=== PATIENT | female | born 1975 | race Caucasian/White ===

== ENCOUNTER 2023-11-16 07:30 | Outpatient (RCR) | payer BC, SELFPAY | END 2024-03-15 23:59 | disposition home or self-care (01) | PROVIDERS: PCP Physical Medicine & Rehabilitation; Visit Provider Physical Medicine & Rehabilitation | DX: M54.2 Cervicalgia (principal); Z51.89 Encounter for other specified aftercare | CPT/HCPCS: 97012; 97110; 97140; 97162 ==

== ENCOUNTER 2024-02-19 12:45 | Outpatient (CLI) | payer BC, SELFPAY ==
--- NOTE | 2024-02-19 13:00 | CRLHL7_ITS ---
For Patients: As a result of the Century Cures Act, medical imaging exams and procedure reports are released immediately into your electronic medical record. You may view this report before your referring provider. If you have questions, please contact your health care provider. INDICATION: Low back pain. TECHNIQUE : Lumbar spine MRI without contrast. COMPARISON: None. FINDINGS : Five lumbar type vertebral bodies, with the last fully formed disc space designated as L5-S1. Normal lumbar lordotic curve. No recent compression fracture or marrow replacing process. Lower cord/conus signal is normal. The conus terminates at a normal location. No intradural lesion. No extraspinal soft tissue abnormalities. Discs/Endplates: Moderate disc height loss and disc desiccation at T11-12. Mild disc height loss disc desiccation at L3-4 and L5-S1. The remaining discs are within normal limits. Findings at individual levels as follows: T11-12: A shallow central protrusion flattens the thecal sac. No spinal canal or neural foraminal stenosis. T12-L1: No spinal canal or neural foraminal stenosis. L1-2: No spinal canal or neural foraminal stenosis. L2-3: No spinal canal or neural foraminal stenosis. L3-4: Moderate disc bulge. Bilateral facet arthrosis. Moderate spinal canal stenosis. No neural foraminal stenosis. L4-5: Mild disc bulge. No spinal canal or neural foraminal stenosis. L5-S1: A shallow central protrusion with annular fissure which contacts the traversing S1 nerve roots. No spinal canal or neural foraminal stenosis. Imaged SI joints: Within normal limits. Imaged sacrum: Within normal limits. IMPRESSION: 1. At L3-4, moderate spinal canal stenosis from disc bulging and facet arthrosis. 2. At L5-S1, a shallow central protrusion contacts the traversing S1 nerve roots. 3. No spinal canal/neural foraminal stenosis or impingement of neural structures elsewhere. Dictated by Saud Dawkins MD @ 02/19/2024 2:09:10 PM (Electronically Signed)
== END 2024-02-19 12:46 | disposition home or self-care (01) ==
LOC: MRI 12:48
PROVIDERS: PCP Physical Medicine & Rehabilitation; Visit Provider Physical Medicine & Rehabilitation
DX: M54.50 Low back pain, unspecified (principal); M51.26 Other intervertebral disc displacement, lumbar region; M51.27 Other intervertebral disc displacement, lumbosacral region
CPT/HCPCS: 72148

== ENCOUNTER 2024-06-14 12:54 | Outpatient (CLI) | payer BC, SELFPAY ==
--- NOTE | 2024-06-14 13:00 | MR_ITS ---
[address] [address] Phone:?[phone] Fax:?[phone] Referring Physician Information: Jefry Vazquez M.D. [address] [facility] [address] Phone:?[phone] Fax:?[phone] Patient:Kayleen Early D.O.B:?1975 Sex:?Female Phone:?[phone] [facility] MRN:?[id number] Exam Date:?06/14/2024 EXAM: MRI of the RIGHT ANKLE CLINICAL HISTORY: Ongoing right ankle pain. Evaluate for ligamentous injury. COMPARISONS: Plain radiographs 03/21/2024. TECHNICAL: MRI sequences of the right ankle: Axials: PD, T2FS Coronals: PD, T2FS Sagittals: PD, T2, STIR Sedation: None Contrast: None FINDINGS: Joints and osseous structures: No fracture, destructive osseous lesion, subluxation, dislocation, tarsal coalition, or talar dome osteochondral lesion is seen. There are mild fourth and fifth TMT joint degenerative changes. Ligaments: Syndesmotic: The anterior inferior tibiofibular, posterior inferior tibiofibular, and inferior transverse ligaments are intact. Anterior talofibular: Intact. Calcaneofibular: Intact. Posterior talofibular: Intact. Deltoid: Unremarkable. Spring: Unremarkable. Sinus tarsi: Intact lateral cervical and medial interosseous ligaments. Bifurcate: Unremarkable lateral calcaneonavicular and medial calcaneocuboid ligaments. Calcaneocuboid: Unremarkable medial, dorsolateral and plantar ligaments. Lisfranc ligament complex: Intact. Flexor tendons: Posterior tibial: Slight tenosynovitis. Flexor digitorum longus: Intact. Flexor hallucis longus: Intact. Peroneal tendons: There is split longitudinal tear of the peroneus brevis tendon from just above the level of the distal fibular tip extending distally just proximal to the level of the calcaneocuboid joint. No lateral subluxation. Extensor tendons: Tibialis anterior: Intact. Extensor hallucis longus: Intact. Extensor digitorum longus: Intact. Achilles tendon: Intact. Plantar aponeurosis: Unremarkable. Sinus Tarsi:?The sinus tarsi fat is intact. Tarsal tunnel: Unremarkable. IMPRESSION: 1. Split longitudinal tear of the peroneus brevis tendon from just above the level of the distal fibular tip extending distally just proximal to the level of the calcaneocuboid joint. 2. Slight posterior tibialis tenosynovitis. 3. Mild fourth and fifth TMT joint degenerative changes. 4. No ligamentous injury or talar dome osteochondral lesion of the right ankle. RCB Electronically signed on 06/15/2024 9:15:00 AM by Kaleb Keller M.D.
--- NOTE | 2024-06-14 13:45 | MR_ITS ---
[address] [address] Phone:?[phone] Fax:?[phone] Referring Physician Information: Jefry Vazquez M.D. [address] [facility] [address] Phone:?[phone] Fax:?[phone] Patient:Kayleen Early D.O.B:?1975 Sex:?Female Phone:?[phone] [facility] MRN:?[id number] Exam Date:?06/14/2024 EXAM: MRI of the LEFT WRIST, without contrast CLINICAL HISTORY: Ongoing left wrist pain. Evaluate for internal derangement. COMPARISONS: Plain radiographs 06/07/2024. TECHNICAL: MR sequences of the left wrist were obtained: coronals: T1, PD FS, T2 3-D sagittals: PD FS axials: PD, PD FS Sedation: None Contrast: None FINDINGS: Joints and osseous structures: No fracture or destructive osseous lesion is seen. No subluxation, dislocation, or erosive changes seen. TFCC: The triangular fibrocartilage disc is intact. The proximal and distal laminae of the ulnar attachment are intact. The volar and dorsal radioulnar ligaments are intact. Ligaments: Scapholunate: Intact. The scapholunate interval and angle are normal. The capitolunate angle is normal. Lunotriquetral: No evidence of tear on this nonarthrogram study. No offset of the lunotriquetral interval. Tendons: Flexors: Intact without tendinopathy or tenosynovitis. Extensors: ECU & 6th extensor compartment: Medial subluxation of the extensor carpi ulnaris tendon at the level the ulnar groove/ulnar may be within normal physiologic limits given supine positioning of the wrist during scanning although pathologic subluxation is not completely excluded. 1st - 5th extensor compartments: Intact and unremarkable. Neurovascular: Median: Unremarkable carpal tunnel without convincing neuritis or intrinsic/extrinsic masses. Ulnar: Unremarkable Guyon's canal without intrinsic/extrinsic masses. Ganglia: There is a 1.1 cm in craniocaudad dimension by 0.4 cm in AP dimension by 0.6 cm in transverse dimension ganglion at the volar and distal aspect of the radial styloid. IMPRESSION: 1. 1.1 x 0.4 x 0.6 cm ganglion at the volar distal aspect of the radial styloid, of uncertain clinical significance. 2. Medial subluxation of the extensor carpi ulnaris tendon at the level the ulnar groove/ulnar styloid may be within normal physiologic limits given supine positioning of the wrist during scanning although pathologic subluxation is not completely excluded. Correlate with physical examination and clinical signs/symptoms. 3. Otherwise, unremarkable MRI of the left wrist without ligamentous injury or triangular fibrocartilage tear. RCB Electronically signed on 06/15/2024 9:08:00 AM by Kaleb Keller M.D.
== END 2024-06-14 12:55 | disposition home or self-care (01) ==
LOC: MRI 12:57
PROVIDERS: PCP Physical Medicine & Rehabilitation; Visit Provider Orthopaedic Surgery Sports Medicine
DX: M25.532 Pain in left wrist (principal); M67.432 Ganglion, left wrist; M25.571 Pain in right ankle and joints of right foot; S96.811A Strain of other specified muscles and tendons at ankle and foot level, right foot, initial encounter; M65.871 Other synovitis and tenosynovitis, right ankle and foot; M19.071 Primary osteoarthritis, right ankle and foot; M24.832 Other specific joint derangements of left wrist, not elsewhere classified; S93.491D Sprain of other ligament of right ankle, subsequent encounter
CPT/HCPCS: 73221; 73721

== ENCOUNTER 2024-07-18 06:13 | Day surgery (SDC) | payer BC, SELFPAY ==
[2024-07-18] VITALS (7 sets, daily range): BP systolic 100–119; BP diastolic 69–88; PULSE 73–90; RESP 16; TEMP 36.3–36.6; O2SAT 95–98; BMI 31.4
[2024-07-18] MEDS: SODIUM CHLORIDE 0.9 % (FLUSH) 10 ML SYRINGE IVF (06:40)
[2024-07-18] MEDS: fentaNYL 100 MCG/2 ML inj IVP (07:15)
[2024-07-18] MEDS: MIDAZOLAM HCL 1 MG/ML inj IVP (07:20)
--- NOTE | 2024-07-18 07:21 | SUR.PREOP ---
TIME?OUT:?0715 PT/александр bobby RN/brian rothman MDA?VERIFICATION?OF?SURGICAL?SITE,?PROCEDURE,?AND?CONSENT OBTAINED?PRIOR?TO?INVASIVE?PROCEDURE.
--- NOTE | 2024-07-18 07:23 | W.PM.H&PU ---
History & Physical Update History & Physical Update H&P Reviewed and patient assessed: No changes noted
[2024-07-18] MEDS: CEFAZOLIN 2 GM in 0.9 % SODIUM CHLORIDE Mini-bag 100 ML IVPB (07:38)
--- NOTE | 2024-07-18 08:00 | W.PM.NB ---
Nerve Block Nerve Block Time Seen by Provider: 07:15 Date Seen: 07/18/24 Type of block requested by surgeon for post-operative analgesia: axillary Side: left Time out performed: Yes Verification of patient name: Yes Verification of date of : Yes Site marking: site marked Name of person performing procedure: Donny Continuous monitoring Was continuous monitoring of O2 sat, B/P, cafeteria monitor, recorded every 15 minutes?: Yes Procedure Checklist: sterile prep, needles and gloves Ultrasound guided. Images saved: Yes Medications given in 5ml increments after negative aspiration: Marcaine %: 0.5 mL: 10 Needle gauge: 22 and Lidocaine %: 2 mL: 15 Patient tolerated procedure well: Yes Additional comments: Needle noted adjacent to nerve Block Charges Block Charge (with Pro Fee): Brachial Plexus Use of Ultrasound Machine for Block: Yes- US Guidance/pain block
--- NOTE | 2024-07-18 08:01 | P.ORPRC_ITS ---
Procedure Note Date of procedure: 07/18/24 Procedure: PREOPERATIVE DIAGNOSIS: 1. Left volar radial wrist benign cyst POSTOPERATIVE DIAGNOSIS: 1. Left volar radial wrist benign mass PROCEDURE: 1. Left volar radial wrist benign mass open excision SURGEON: Jefry Vazquez MD. FLOOR COVERING CONTRACTOR: Santi Marroquin PA-C - Of note, an undertaker assistant was critical for this case to aid in patient positioning, tissue retraction, limb manipulation/positioning, patient safety, & closure. ANESTHESIA: Regional block plus MAC EBL: 1 mL IMPLANTS: None TOURNIQUET: 15 minutes at 225 torr COMPLICATIONS: None evident INDICATIONS: The patient is a pleasant 49-year-old female who has experienced left volar radial wrist swelling/prominence/discomfort. This seems to have been related to a volar wrist ganglion cyst. She does feel like it has grown in recent time. She does not have any inciting event specifically. Nonoperative management has been tried but unsuccessful. Given the failure of nonoperative management, and how this affects daily life, surgery was recommended. DESCRIPTION OF PROCEDURE: Following a thorough discussion of risks, benefits, and alternatives consent was obtained and the operative extremity was marked. The patient was brought to the operating room and placed supine on the operating table. 1 g IV Ancef was administered within 1 hour incision preoperatively. Proper time-out was performed identifying proper patient, site, and procedure. The operative extremity was prepped and draped in the appropriate sterile fashion using ChloraPrep. The limb was exsanguinated and the tourniquet inflated. A a longitudinal incision was made over the volar aspect of the radial left wrist approaching flexor wrist crease and then angling slightly radial so as not to cross the flexor crease perpendicular. Sharp incision through the skin and blunt dissection of subcutaneous tissue immediately overlying the prominence that she confirmed preoperatively. Upon dissection, we identified FCR tendon as well as radial artery. These were both protected. Upon further dissection just deep to the FCR, a thickened soft tissue mass was encountered. Initially, this was thought to be the location of the ganglion cyst, but as this was sharply inc ised, there was no fluid clearly encountered. This seemed to be more of a soft tissue thickening/mass. The tissue was excised and measured approximately 3 x 5 x 8 mm. It was sent for permanent pathology. Deep to this 1 could palpate volar aspect of the trapezium. There was a smooth longitudinal groove on the trapezium for the FCR tendon. There was somewhat of a prominence on the more radial aspect of this, but it was felt necessary to help maintain the FCR is alignment and thus it was not debrided. Beyond that, no further thickening could be appreciated and thus no further tissue dissection or excision was performed. At this stage, the tourniquet was deflated and hemostasis achieved. Closure was performed with 3-0 Vicryl and 4-0 Monocryl. Soft dressings were applied, and the patient was awoken/transferred to the recovery room in stable condition. PLAN: 1. Encourage elevation of the operative extremity. 2. Range of motion of the operative extremity/digits as tolerated. 3. Ibuprofen, acetaminophen and/or oxycodone as needed for pain. 4. Follow up with PA visit in 12-16 days for wound check and suture removal.
--- NOTE | 2024-07-18 08:24 | W.ANESCHARGE ---
Anesthesia Charges Start Date/Time Anesthesia Start Date: 07/18/24 Anesthesia Start Time: 07:23 Stop Date/Time Anesthesia Stop Date: 07/18/24 Anesthesia Stop Time: 08:24
== END 2024-07-18 09:19 | disposition home or self-care (01) ==
PROVIDERS: PCP Physical Medicine & Rehabilitation; Visit Provider Orthopaedic Surgery Sports Medicine
PROC: (CPT 25111; principal; 2024-07-18 07:15)
DX: M67.432 Ganglion, left wrist (principal)
CPT/HCPCS: 25111; 01810; 76942; 88305; J0665; J0690; J1100; J2250; J2405; J2704; J3010

== ENCOUNTER 2024-10-11 07:30 | Outpatient (RCR) | payer BC, SELFPAY | END 2025-01-24 12:41 | disposition home or self-care (01) | PROVIDERS: PCP Physical Medicine & Rehabilitation; Visit Provider Orthopaedic Surgery Sports Medicine | DX: M76.891 Other specified enthesopathies of right lower limb, excluding foot (principal); Z51.89 Encounter for other specified aftercare | CPT/HCPCS: 97110; 97140; 97161 ==

== ENCOUNTER 2024-11-03 08:00 | Outpatient (CLI) | payer BC, SELFPAY ==
--- NOTE | 2024-11-03 08:15 | MR_ITS ---
[facility] [address] [facility] [address] Phone:?[phone] Fax:?[phone] Referring Physician Information: Jefry Vazquez M.D. [address] [facility] [address] Phone:?[phone] Fax:?[phone] Patient:Kayleen Early D.O.B:?1975 Sex:?Female Phone:?[phone] [facility] MRN:?[id number] Exam Date:?11/03/2024 EXAM: MRI of the RIGHT KNEE, without contrast CLINICAL: Right knee pain. Evaluate for medial meniscal tear. COMPARISONS: X-rays dated 03/21/2024. TECHNICAL: Multiplanar multisequence MRI of the right knee was obtained. SEDATION: None. CONTRAST: None. FINDINGS: Ligaments: ACL: Intact and unremarkable. PCL: Intact and unremarkable. MCL: Intact and unremarkable. LCL: Intact and unremarkable. Posterolateral corner: Popliteus, biceps femoris, iliotibial band, and the popliteofibular ligament appear intact. Posteromedial corner: Semimembranosus, pes anserine tendons and posterior oblique ligament appear intact. Extensor mechanism: Patellar tendon: Intact, without tendinopathy. Quadriceps tendon: Intact, without tendinopathy. Retinacula: Medial and lateral retinacula are intact. Fat pads: There is increased edema involving the quadriceps fat, nonspecific. Patellofemoral joint: Patella: There is chondral fissuring and delamination involving the lateral patellar facet with mild underlying subchondral reactive marrow edema. Chondral fissuring and small segment of chondral delamination also involves the junction of the medial facet and patellar median ridge on axial series 4 image 12 with minimal adjacent subchondral reactive edema. Trochlea: Grade 2-3 chondral loss and deep chondral fissuring involves the inferior trochlea with mild adjacent reactive marrow edema as seen on sagittal series 6 image 15-19. Medial compartment: Medial meniscus: No evidence of discrete meniscal tear or meniscal displacement. Medial cartilage: No significant chondromalacia. Lateral compartment: Lateral meniscus: No evidence of discrete meniscal tear or meniscal displacement. Lateral cartilage: Chondral fissuring and small segment of grade 2 chondral loss involves the lateral tibial plateau on coronal series 8 images 18-19. Lateral femoral condyle cartilage is preserved. Knee joint: Effusion: Physiologic right knee effusion. Intra-articular bodies:?No convincing bodies identified. Popliteal cyst: Small. Bones: No suspicious bone marrow signal alteration or fracture line. IMPRESSION: 1. 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 2. Increased edema involving the quadriceps fat is nonspecific but can be seen in patients with impingement. 3. Small popliteal cyst. 4. No evidence of meniscal tear, ligamentous injury, or fracture. JCZ Electronically signed on 11/04/2024 11:24:00 AM by Balta Echevarria D.O.
--- NOTE | 2024-11-03 09:00 | MR_ITS ---
[facility] [address] [facility] [address] Phone:?[phone] Fax:?[phone] Referring Physician Information: Jefry Vazquez M.D. [address] [facility] [address] Phone:?[phone] Fax:?[phone] Patient:Kayleen Early D.O.B:?1975 Sex:?Female Phone:?[phone] [facility] MRN:?[id number] Exam Date:?11/03/2024 EXAM: MRI OF THE LEFT WRIST, WITHOUT CONTRAST CLINICAL: History of prior wrist cyst excision surgery in July 2024. Evaluate for cyst. COMPARISONS: MRI 06/14/2024. TECHNICAL: Multiplanar multisequence MRI of the left wrist was obtained. SEDATION: None. CONTRAST: None. FINDINGS: Joints/Osseous structures: No evidence of bone marrow edema, fracture, subluxation or dislocation. No new changes of arthrosis. No joint effusion. Small ganglion cyst formation along the volar aspect of the radiocarpal joint is unchanged compared to prior exam. TFCC: Fibrocartilage disc proper is intact. The remainder of the triangular fibrocartilage complex is intact. Ligaments: Scapholunate: No sprain/tear. Lunotriquetral: No sprain/tear. Tendons: Flexors: There is postoperative change or minimal partial tearing of the flexor carpi radialis tendon as it courses within the volar wrist underlying the skin marker in the region of interest as seen on axial series 4 image 15-16, new compared to prior exam. Minimal edema/fluid about the tendon within this region with adjacent postoperative soft tissue changes. Remaining imaged flexor tendons appear unremarkable. Extensors: ECU & 6th extensor compartment: No significant tendinosis, tear or tenosynovitis. 1st - 5th extensor compartments: Intact without significant tendinosis or tenosynovitis. Neurovascular: Median: Unremarkable carpal tunnel without convincing neuritis or intrinsic/extrinsic masses. Ulnar: Unremarkable Guyon's canal without intrinsic/extrinsic masses. IMPRESSION: 1. Small ganglion cyst along the volar aspect of the radiocarpal joint is unchanged compared to prior exam. 2. Postoperative change or minimal partial tearing involving the flexor carpi radialis tendon as it courses within the volar wrist with minimal edema/fluid about the tendon and with adjacent postsurgical soft tissue changes noted. 3. No additional internal derangement identified. JCZ Electronically signed on 11/04/2024 11:30:00 AM by Balta Echevarria D.O.
== END 2024-11-03 08:01 | disposition home or self-care (01) ==
LOC: MRI 08:01
PROVIDERS: PCP Physician Assistant Medical; Visit Provider Orthopaedic Surgery Sports Medicine
DX: M25.561 Pain in right knee (principal); M22.41 Chondromalacia patellae, right knee; M71.21 Synovial cyst of popliteal space [Baker], right knee; M67.432 Ganglion, left wrist; Z98.890 Other specified postprocedural states
CPT/HCPCS: 73221; 73721

== ENCOUNTER 2025-07-17 07:04 | Outpatient (CLI) | payer BC, SELFPAY ==
--- NOTE | 2025-07-17 07:15 | MR_ITS ---
EXAM: MRI OF THE LEFT KNEE WITHOUT CONTRAST CLINICAL HISTORY: Pain in left knee. Injury during exercise. Evaluate for medial meniscal tear. Possible root tear. COMPARISONS: Plain radiographs 07/12/2025. TECHNICAL: MR sequences of the left knee: sagittals: PD, PDFS coronals: PD, STIR axials: PD, T2 FS CONTRAST: None SEDATION: None FINDINGS: Bones: No fracture or destructive osseous lesion. Patellofemoral joint: Cartilage: Broad-based grade II to III chondromalacia over the lateral patellar facet. Retinacula: The medial and lateral retinacula are intact. Fat pads: Edema-like signal within the superolateral portion of the infrapatellar fat pad is associated with patellar tendon-lateral femoral condyle friction/patellar maltracking. The Insall Salvati index measures 1.32. The lateral trochlear inclination angle measures 11 and 12 degrees. The tibial tubercle to trochlear groove distance measures 1.5 cm. There is also edema-like signal within the quadriceps fat pad. Knee joint: Effusion: Physiologic amount of joint fluid. Popliteal cyst: None. Intra-articular bodies: None. Posteromedial corner: The semimembranosus and pes anserine tendons are intact. Medial compartment: Medial meniscus: Intact. Cartilage: 3 x 3 mm focus of grade II chondromalacia over the lateral weightbearing portion of the medial femoral condyle. Lateral compartment: Lateral meniscus: Intact. Cartilage: Intact. Ligaments: Anterior cruciate ligament: Intact. Posterior cruciate ligament: Intact. Medial collateral ligament: Intact. Posterior oblique ligament: Intact. Fibular collateral ligament: Intact. Posterolateral corner: The distal biceps femoris tendon, iliotibial band, popliteus tendon, popliteus muscle, popliteofibular ligament, and arcuate ligament are intact. Extensor mechanism: Patellar tendon: Intact. Quadriceps tendon: Interstitial delamination within and mild tendinopathy of the distal quadriceps tendon. IMPRESSION: 1. Edema-like signal within the superolateral portion of the infrapatellar fat pad is associated with patellar tendon-lateral femoral condyle friction/patellar maltracking. An increased Insall Salvati index of 1.32 suggests patella cayetano. Lower limits of normal lateral trochlear inclination angle of 11-12 degrees. The tibial tubercle to trochlear groove distance measures 1.5 cm. 2. Broad-based grade II to III chondromalacia over the lateral patellar facet. 3. 3 x 3 mm focus of grade II chondromalacia over the lateral weightbearing portion of the medial femoral condyle. 4. Interstitial delamination within and mild tendinopathy of the distal quadriceps tendon and edema-like signal in the adjacent quadriceps fat pad. 5. No ligamentous or meniscal pathology of the left knee. RCB Electronically signed on 07/17/2025 11:23:00 AM by Kaleb Keller M.D.
== END 2025-07-17 07:05 | disposition home or self-care (01) ==
PROVIDERS: PCP Physician Assistant Medical; Visit Provider Physician Assistant
DX: M25.562 Pain in left knee (principal); M22.2X2 Patellofemoral disorders, left knee; Q68.2 Congenital deformity of knee; M22.42 Chondromalacia patellae, left knee; M76.892 Other specified enthesopathies of left lower limb, excluding foot; M79.4 Hypertrophy of (infrapatellar) fat pad
CPT/HCPCS: 73721

== ENCOUNTER 2025-08-03 15:14 | Outpatient (CLI) | payer BC, SELFPAY ==
--- NOTE | 2025-08-03 15:30 | CRLHL7_ITS ---
For Patients: As a result of the Century Cures Act, medical imaging exams and procedure reports are released immediately into your electronic medical record. You may view this report before your referring provider. If you have questions, please contact your health care provider. Indication: Cervical radiculitis. Technique: Multiplanar multisequence noncontrast MR images of the cervical spine. Comparison: None. Findings: Slight focal reversal of the cervical lordosis centered at the C5 level. Mild leftward cervical curvature. Vertebral heights are maintained. No acute fracture. No T1 hypointense lesions. The cervical cord is normal in signal intensity. C2-3: Advanced right and mild left facet arthropathy. No spinal canal or neural foraminal narrowing. C3-4: Shallow posterior disc bulge. Moderate right facet arthropathy. No spinal canal or neural foraminal narrowing. C4-5: Mild grade 1 anterolisthesis. [id number] disc height loss. Left eccentric disc bulge. Left uncinate spurring. Advanced left and mild right facet arthropathy. Minimal spinal canal narrowing. Severe left without right neural foraminal narrowing. C5-6: Mild disc height loss. Shallow posterior disc osteophyte complex. Uncinate spurring. Mild facet arthropathy. Minimal spinal canal narrowing. Mild left without right neural foraminal narrowing. C6-7: Left eccentric disc bulge. Mild facet arthropathy. Minimal spinal canal narrowing. Mild left without right neural foraminal narrowing C7-T1: Grade 1 anterolisthesis. Advanced facet arthropathy. Mild edema in the right articulating facets. No spinal canal narrowing. Mild bilateral neural foraminal narrowing. Impression: 1. Multilevel cervical spondylosis without spinal canal stenosis. 2. At C4-5, advanced left facet arthropathy contributes to severe left neural foraminal stenosis. 3. At C7-T1, advanced right facet arthropathy. Mild edema in the right articulating facets is compatible with a stress response. Dictated by Raul Flynn MD @ 08/04/2025 8:52:36 AM (Electronically Signed)
== END 2025-08-03 15:15 | disposition home or self-care (01) ==
LOC: MRI 15:14
PROVIDERS: PCP Physician Assistant Medical; Visit Provider Orthopaedic Surgery
DX: M54.12 Radiculopathy, cervical region (principal); M50.21 Other cervical disc displacement, high cervical region; M50.221 Other cervical disc displacement at C4-C5 level; M50.222 Other cervical disc displacement at C5-C6 level; M50.223 Other cervical disc displacement at C6-C7 level; M50.23 Other cervical disc displacement, cervicothoracic region
CPT/HCPCS: 72141